=== PATIENT | female | born 1985 | race Caucasian/White ===

== ENCOUNTER 2017-02-19 04:56 | Emergency (ER) | payer MEDICAID ==
[~2017-02-19 04:56] MED LIST: CIPRO500 MG PO; CLARITIN 10 MG10 MG PO; IBUPROFEN200 MG PO; PERCOCET 10/3251 TA1 PO
[2017-02-19 05:21] LABS: APPEARANCE HAZY (CLEAR); BILIRUBIN NEGATIVE (NEGATIVE); COLOR YELLOW (YELLOW); GLUCOSE NEGATIVE (NEGATIVE); KETONE NEGATIVE (NEGATIVE); LEUKOCYTE ESTERASE NEGATIVE (NEGATIVE); NITRITE NEGATIVE (NEGATIVE); PROTEIN TRACE mg/dL (NEGATIVE); UROBILINOGEN NORMAL (NORMAL); WHITE CELLS - URINE 0-5 /hpf (0-5)
[2017-02-19 05:44] LABS: BASOPHILS 0.1 % (0-2); EOSINOPHILS 0.1 % (0-7); HEMATOCRIT 34.5 % (36.0-48.0); HEMOGLOBIN 12.1 g/dL (12-16); IMMATURE GRANULOCYTES 0.1 % (0-5); LYMPHOCYTES 11.7 % (15-50); MCH 33.1 pg (26.0-34.0); MCHC 35.1 g/dL (31.0-37.0); MCV 94.3 fL (80.0-100.0); MEAN PLATELET VOLUME 9.9 fL (7.4-10.4); MONOCYTES 6.2 % (2-11); NEUTROPHILS 81.8 % (40-80); PLATELET COUNT 164 10x3/uL (130-400); RBC 3.66 10x6/uL (4.00-5.40); RDW 12.6 % (11.5-14.5); WBC 6.8 10x3/uL (4.8-10.8)
[2017-02-19 05:57] LABS: HCG SERUM NEGATIVE (NEGATIVE)
[2017-02-19 06:05] LABS: ALBUMIN 4.3 g/dL (3.4-5.0); ANION GAP 11.1 mmol/L (8-16); BILIRUBIN - TOTAL 0.5 mg/dL (0.2-1.3); CARBON DIOXIDE 27.8 mmol/L (21.0-32.0); POTASSIUM - SERUM 3.9 mmol/L (3.5-5.1); PROTEIN - SERUM 7.5 g/dL (6.4-8.2)
== END 2017-02-19 07:58 | disposition home or self-care (01) ==
LOC: D.ER 04:56
PROVIDERS: Family Medicine
DX: N20.1 Calculus of ureter (principal)

== ENCOUNTER → 2018-09-06 12:05 | Outpatient (CLI) | payer MEDICAID | END | disposition home or self-care (01) | LOC: D.RAD 12:05 | PROVIDERS: ATTEND Urology | DX: D72.829 Elevated white blood cell count, unspecified (principal); Z87.442 Personal history of urinary calculi ==

== ENCOUNTER → 2018-09-06 17:19 | Outpatient (CLI) | payer MEDICAID | END | disposition home or self-care (01) | LOC: D.LABREF 17:19 | PROVIDERS: ATTEND Urology | DX: D72.829 Elevated white blood cell count, unspecified (principal) ==

== ENCOUNTER 2019-03-17 05:00 | Day surgery (SDC) | payer MEDICAID ==
[2019-03-14 10:33] LABS: BASOPHILS 0.4 % (0-2); EOSINOPHILS 1.2 % (0-7); HEMATOCRIT 37.2 % (36.0-48.0); LYMPHOCYTES 27.8 % (15-50); MCHC 34.9 g/dL (31.0-37.0); MCV 94.4 fL (80.0-100.0); MEAN PLATELET VOLUME 10.2 fL (7.4-10.4); MONOCYTES 6.7 % (2-11); NEUTROPHILS 63.9 % (40-80); RBC 3.94 10x6/uL (4.00-5.40); RDW 12.5 % (11.5-14.5); WBC 5.1 10x3/uL (4.8-10.8)
[2019-03-14 10:41] LABS: ANION GAP 7.8 mmol/L (8-16); CALCIUM 9.4 mg/dL (8.5-10.1); CARBON DIOXIDE 31.4 mmol/L (21.0-32.0); CREATININE - SERUM 1.1 mg/dL (0.6-1.3); POTASSIUM - SERUM 4.2 mmol/L (3.5-5.1)
[2019-03-14 10:42] LABS: PLATELET COUNT 228 10x3/uL (130-400)
[2019-03-17] VITALS (14 sets, daily range): BP systolic 94–123; BP diastolic 48–78; Ht 165.1 cm; Wt 85.9 kg
[~2019-03-17] VITALS: Ht 165.1 cm; Wt 85.9 kg
[~2019-03-17 05:00] MED LIST changes: +THEREMS-M1 TAB PO
[2019-03-17 06:13] LABS: HCG URINE NEGATIVE (NEGATIVE)
--- NOTE | 2019-03-17 10:55 | NUR ---
RECEIVED PT FROM VIA STRETCHER TO ROOM 1218. PT TRANSFERS ONTO BED PER SELF. PT DROWSY, RESPONDS APPROPRIATELY TO QUESTIONS. PT STATES C/O ABDOMINAL PAIN OF "9" ON 0-10 PAIN SCALE. 3 LAP INCISIONS WITHOUT DRAINAGE NOTED. VAGINAL PACKING WITH SMALL AMT OF BLOODY DISCHARGE NOTED. FLORES TO GRAVITY DRAINING CLOUDY, CONCENTRATED YELLOW URINE. PIV SITE CLEAR TO RIGHT FOREARM. 20 GAUGE CATHELON. LR INFUSING AT 125 ML/HR. ICE PACK TO INCISIONS. TORADOL 15 MG GIVEN SIVP OVER 2 MINUTES. PT INSTRUCTED ON MED. PT ORIENTED TO ROOM, BED, AND CALL LIGHT. BED PLACED IN LOW POSITION. SR UP X2. CALL LIGHT IN REACH.
--- NOTE | 2019-03-17 11:30 | NUR ---
PT LYING IN SEMI-COWAN'S POSITION IN BED. EYES CLOSED. WAKES UPON VERBAL STIMULATION. DENIES NEEDS OR C/O.
--- NOTE | 2019-03-17 12:30 | NUR ---
PT EYES CLOSED, LYING SUPINE IN BED. WAKES ON VERBAL STIMULATION. DENIES NEEDS OR C/O.
--- NOTE | 2019-03-17 13:40 | NUR ---
Pt awake at this time & states pain 3 out 10 on 1-10 scale. 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 Pt's friend at bedside.
--- NOTE | 2019-03-17 14:45 | NUR ---
PT REQUESTS AND RECEIVES CHICKEN BROTH. DENIES NAUSEA.
--- NOTE | 2019-03-17 15:40 | NUR ---
Pt awake & alert with no c/o at this time. Pt sitting up in bed at this time w/ no s/s of distress.
--- NOTE | 2019-03-17 17:22 | NUR ---
NEURONTIN 300 MG AND TORADOL 15 MG GIVEN ORDERED. PT INSTRUCTED ON MEDS. VERBALIZES UNDERSTANDING.
--- NOTE | 2019-03-17 19:42 | NUR ---
PT RESTING WITH EYES CLOSED, RESP QUIET, NO DISTRESS NOTED, LEFT UNDISTURBED AT THIS TIME, FAMILY MEMBER AT BEDSIDE
--- NOTE | 2019-03-17 20:29 | NUR ---
ASSESSMENT PER FLOW SHEET, VS OBTAINED, IV IN RIGHT FA INTACT WITH NO REDNESS OR EDEMA INFUSING VIA PUMP AT 125 ML/HR PER MD ORDERS, SEE EMAR, 2 LAP AND 1 UMB INC WITH DERMABOND CDI WITH NO DRAINAGE NOTED, FRESH ICE PACK PLACED, PT INST ON KEEPING ICE PACK ON TOP OF SHEET, PT VERBALIZES UNDERSTANDING, VAG PACK IN PLACE, MEHNAZ PAD PLACED, FLORES CATH INTACT DRAINING CLEAR YELLOW URINE, SCD'S ON AND WORKING PROPERLY, PT REQUESTED AND SERVED FRESH H20, DENIES FURTHER NEEDS, BED IN LOW POSITION, SIDE RAILS X 2, CALL LIGHT IN REACH, FAMILY MEMBER AT BEDSIDE
--- NOTE | 2019-03-17 21:17 | NUR ---
PT AWAKE, ADM 2100 MEDS PER MD ORDERS, SEE EMAR, PT DENIES FURTHER NEEDS, BEDDING PROVIDED TO FAMILY MEMBER
--- NOTE | 2019-03-17 22:30 | NUR ---
PT RESTING WITH EYES CLOSED, RESP QUIET, NO DISTRESS NOTED, LEFT UNDISTURBED AT THIS TIME, SCD'S CONTINUE ON AND WORKING PROPERLY, FAMILY MEMBER ASLEEP AT BEDSIDE
--- NOTE | 2019-03-17 23:15 | NUR ---
SHIFT REPORT TO WILL CARD RN
--- NOTE | 2019-03-17 23:25 | NUR ---
PATIENT RESTING QUIETLY WITH EYES CLOSED, EASILY AROUSED TO VERBAL STIMULI. ADMINISTERED TORADOL PER MD ORDERS. SEE EMAR. PT DENIES NEEDS AT THIS TIME. WILL CONTINUE TO MONITOR.
--- NOTE | 2019-03-18 00:15 | NUR ---
CUP OF ICE CHIPS PROVIDED PER PT REQUEST, NO FURTHER NEEDS IDENTIFIED. BED REMAINS LOCKED IN LOW POSITION, SIDE RAILS UPX2, CALL VACA AND TRAY TABLE IN REACH. WILL CONTINUE TO MONITOR
--- NOTE | 2019-03-18 00:55 | NUR ---
PT PROVIDED WITH PILLOW PER REQUEST AND PT TEACHING COMPLETED ON SPLINTING HER ABDOMEN DURING COUGHING. PT VERBALIZED UNDERSTANDING. NO FURTHER NEEDS IDENTIFIED. WILL CONTINUE TO MONITOR.
--- NOTE | 2019-03-18 02:25 | NUR ---
PT SITTING UP IN BED WITH EYES CLOSED, EASILY AROUSED TO VERBAL. NEW 1000ML BAG OF LR HUNG AND INFUSING VIA ALARIS PUMP AT 125ML/HR. PT DENIES NEEDS, WILL CONTINUE TO MONITOR.
--- NOTE | 2019-03-18 04:52 | NUR ---
PT RESTING QUIETLY WITH EYES CLOSED, NO DISTRESS NOTED. WILL CONTINUE TO MONITOR
--- NOTE | 2019-03-18 05:02 | NUR ---
ADMINISTERED TORADOL PER MD ORDERS, SEE EMAR. PT REPOSITIONED TO RIGHT SIDE, PILLOW PLACED BEHIND BACK AND BETWEEN LEGS FOR COMFORT. FLORES CATHETER NOTED TO HAVE 325 ML URINE IN THE CHAMBER. EMPTIED INTO BAG AT THIS TIME. NO FURTHER NEEDS IDENTIFIED. WILL CONTINUE TO MONITOR.
--- NOTE | 2019-03-18 05:50 | NUR ---
DR JIN CALLED [facility], NEW ORDERS NOTED. PT EASILY AROUSED FROM SLEEP AT THIS TIME, FLORES REMOVED WITH 125ML URINE NOTED IN CHAMBER. VAGINAL PACKING REMOVED WITHOUT INCIDENT, PT TOLERATED WELL. NASAL CANNULA REMOVED AND PT O2 SAT REMAINS 95% ON ROOM AIR. PT DENIES NEEDS AT THIS TIME. WILL CONTINUE TO MONITOR.
--- NOTE | 2019-03-18 07:45 | NUR ---
PT IV D/C'ED AT THIS TIME. PT SAT UP ON THE SIDE OF THE BED & ASSSISTED TO THE RESTROOM. PT ABLE TO VOID AT THIS TIME. PT GOWN & LINEN CHANGED. PT W/ NO C/O AT THIS TIME IN STABLE CONDITION.
[2019-03-18 07:55] VITALS: BP 114/66
--- NOTE | 2019-03-18 08:00 | NUR ---
BED LINENS CHANGED, PT BACK TO BED AFTER VOIDING 200 ML'S INTO [place] HAT. PT THEN ASSISTED WITH BREAKFAST TRAY, WILL COMPLETE AM ASSESSMENT WHEN PT IS DONE WITH BREAKFAST.
--- NOTE | 2019-03-18 10:09 | NUR ---
PT ASSISTED UP TO RESTROOM AGAIN AT THIS TIME. PT ABLE TO VOID W/O DIFFICULTY. PT IN STABLE CONDITION AT THIS TIME.
--- NOTE | 2019-03-18 10:15 | NUR ---
DR. JIN CALLS TO UNIT, PROGRESS REPORT GIVEN TO MD LUCIANO WILL PLACE DISCAHRGE ORDERS.
--- NOTE | 2019-03-18 10:30 | NUR ---
DR. JIN ASSESSING PT AT THIS TIME.
[2019-03-18] MEDS ORDERED: NEURONTIN 300300 MG PO (11:05)
[2019-03-18] MEDS ORDERED: MOBIC7.5 MG PO (11:07)
[2019-03-18] MEDS ORDERED: PERCOCET 7.5/321 TAB PO (11:08)
[2019-03-18] MEDS ORDERED: ZOFRAN ODT4 MG/UDTAB PO (11:11)
--- NOTE | 2019-03-18 12:00 | NUR ---
DISCHARGE INSTRUCTIONS REVIEWED WITH PT. PT'S FRIEND LATONYA IN ROOM WITH PT WHILE INSTRUCTIONS GIVEN. PT VOICED UNDERSTANDING OF ALL D/C INSTRUCTIONS.
--- NOTE | 2019-03-18 13:31 | NUR ---
PT UP TO SHOWER. PT IN STABLE CONDITION AT THIS TIME.
--- NOTE | 2019-03-18 13:54 | NUR ---
PT BACK TO BED AT THIS TIME & C/O OF NAUSEA.
--- NOTE | 2019-03-18 14:06 | NUR ---
ZOFRAN GIVEN AT THIS TIME.
--- NOTE | 2019-03-18 14:15 | NUR ---
DR. JIN CALLED & STATED HE ADDED AN ORDER FOR T3 & T4. STATED AFTER LAB DRAW PT MAY STILL BE D/C'ED HOME, PT DOES NOT NEED TO WAIT FOR RESULTS TO BE D/C'ED PER
--- NOTE | 2019-03-18 14:21 | NUR ---
PT STATES "FEELING BETTER & NAUSEA IS BETTER."
--- NOTE | 2019-03-18 14:46 | NUR ---
LAB IN PT ROOM AT THIS TIME.
--- NOTE | 2019-03-18 15:00 | NUR ---
PT D/C'ED AT THIS TIME IN STABLE CONDITION. PT TAKEN OUT BY VOLUNTEER IN WHEELCHAIR. PT'S MOTHER & CHILDREN WITH PT AT TIME OF D/C.
--- NOTE | 2019-03-18 15:13 | NUR ---
AM ASSESSMENT COMPLETED AT 0845.
[2019-03-19 07:15] LABS: T3 - FREE 1.8 pg/mL (2.0-4.4)
[2019-03-19 14:09] LABS: THYROGLOBULIN ANTIBODY <1.0 IU/mL (0.0-0.9); THYROID PEROXIDASE ABS 243 IU/mL (0-34)
--- NOTE | 2019-03-20 07:14 | OP ---
PATIENT NAME: TRUDY AVILA MEDICAL RECORD: [id number] :85 LOCATION:D[facility] ADMISSION DATE: SURGEON: JUDE JIN MD DATE OF OPERATION: 03/17/2019 PREOPERATIVE DIAGNOSES: 1. Uterine prolapse. 2. Rectocele posterior. POSTOPERATIVE DIAGNOSES: 1. Uterine prolapse. 2. Rectocele posterior. PROCEDURE: 1. Diagnostic laparoscopy. 2. Bilateral salpingectomy. 3. Laparoscopically assisted vaginal hysterectomy. 4. Modified Wright's culdoplasty with vault suspension. 5. Posterior colporrhaphy. SURGEON: Jude Jin MD CLOTH BRUSHING AND SUEDING SUPERVISOR: Dr. New. ANESTHESIOLOGIST: Dr. Manning. CUSHION WORKER: Mike King. ANESTHETIC: General. FINDINGS: Uterus prolapses to the hymenal ring. The vaginal mucosa is unremarkable. A rectocele was present to second degree. At the time of laparoscopy, unremarkable tubes and ovaries with a retroverted uterus that is enlarged and boggy. SPECIMENS REMOVED: 1. Uterus with cervix. 2. Bilateral tubes. SPECIMEN DISPOSITION: All specimens to pathology. ESTIMATED BLOOD LOSS: Less than or equal to 150 cc. FLUIDS: 1300 cc lactated Ringer's. URINE OUTPUT: 50 cc cath at the beginning of the procedure and 100 cc. COMPLICATIONS: None. DRAINS: Pierre to gravity. INDICATIONS: The patient is a multiparous female with dyspareunia. The patient also feels pelvic pressure with prolonged standing and notices a bulge at her introitus. The patient was found to have uterine prolapse to the hymenal ring. The patient also has rectocele present. Reports splinting with bowel movements. OPERATIVE REPORT [id number] TRUDY AVILA DESCRIPTION OF PROCEDURE: After informed consent was assured, the patient was taken to the operating room where anesthetic was obtained without difficulty. The patient was prepped and draped in the usual sterile fashion. Being placed in Yellofin stirrups, the bladder was drained. The legs were positioned for the laparoscopic portion of this case. An incision was made at the umbilicus to accommodate a 5-mm trocar, which was inserted without difficulty. Accessory ports are now placed in the right and left lower quadrants. Right tube was elevated and using a Thunderbeat coagulation cutter, the attachment of the tube to the mesosalpinx compressed, coagulated, and until the tube was completely removed at the cornual region and removed from the port. Attention was now directed to the left side. In similar fashion, the left tube was elevated. Again, using the Thunderbeat coagulation cutter, the tissues were compressed, coagulated, and . This tube was at the left cornual region. Attention was now directed to the vagina. The legs were positioned for the vaginal portion of this case and a weighted speculum was introduced. The cervix was grasped with Archuleta tenaculums and elevated and the cul-de-sac entered with Blankenship scissors. Peritoneum was tacked to the mucosa. The uterosacral ligaments were isolated with Brian[place] clamp on both right and left side. These pedicles are mobilized with scissors and a Brian stitch applied for hemostasis. These stitches were tagged for later use in this procedure. Using a Bovie cautery, the bladder was now mobilized off the anterior surface of the cervix. Once the bladder has been mobilized, the cardinal ligaments are clamped, cut, and tied bilaterally. Attention was directed anteriorly where the anterior pouch is now entered and a Lorne retractor placed. Remaining portions of the broad ligament were serially clamped, cut, and tied until the furthest limits of dissection could be reached safely. At this point, with visualization poor, the uterus is morcellated. By collapsing the uterus to the midline, the left cornual region is identified and a clamp placed underneath the previous dissection. This pedicle was developed with scissors, free tie, and then a iliv-gee-adl stitch applied for hemostasis. This was repeated on the contralateral side. With clamping off the remaining tissue and it being freed with scissors, a tie and a pass and a drsq-heo-gyc stitch was applied for hemostasis. All pedicles were inspected and found to be hemostatic. The peritoneum of the bladder is tacked to the vaginal mucosa anteriorly. The stitch is now passed from the posterior cuff through the left uterosacral ligament across the peritoneum posteriorly through the right uterosacral ligament and back out into the posterior vagina. The cuff was now closed anterior to posterior fashion until the previous mentioned tagged uterosacral ligaments were reached and then they are tied separately. The closed continues over this uterosacral complex until its complete. The aforementioned stitch, the passes through the posterior vaginal cuff was now tied and this way securing the apex of the vagina, the ligament support. Attention was now directed to the introitus. With Allis clamps grasping at the 5 and 7 o'clock positions, a #15 blade was used to incise the posterior fourchette. There were a full thickness injection of 0.5% lidocaine solution with epinephrine was now placed in the posterior vault. Using Metzenbaum scissors, the spaces opened and with the use of cottonoids and Metzenbaum scissors, the tissue was dissected free of the vaginal mucosa. A central defect is noted. Using 2-0 Vicryl stitch horizontal mattress stitches are now placed in a lurqonqy-lh-fhtlmtiq fashion. After the last stitch was secured, perineal bodies reapproximated. After the excessive skin, the perineal bodies removed. The excessive vaginal mucosa was cut free. Using 2-0 Vicryl, the posterior cuff was now closed. Pneumoperitoneum was reestablished and visualization of the operative field revealed adequate hemostasis. The pelvis was copiously OPERATIVE REPORT [id number] TRUDY AVILA irrigated and irrigant removed. The accessory ports were removed under direct visualization and then the primary port was removed after release of the pneumoperitoneum. All sites were closed with a subcuticular stitch and Dermabond applied. TRANSINT:[id number] Voice Confirmation ID: [id number] DOCUMENT ID: [id number] JUDE JIN MD at 0714 CC: [id number] DICTATION DATE: 03/17/19 1005 TELEMARKETING AGENT: 03/17/19 1221 [facility] 03/18/19 [id number] [place] [address]
== END 2019-03-18 15:00 | disposition home or self-care (01) ==
LOC: D.OPS 05:00 → D.PAN 07:00 → D.OPS 08:20 → D.WS 10:40 → D.OPS 03-18 15:00
PROVIDERS: ATTEND Obstetrics & Gynecology
DX: N81.4 Uterovaginal prolapse, unspecified (principal)